=== PATIENT | female | born 1990 | race Caucasian/White ===

== ENCOUNTER 2019-07-31 08:36 | Emergency (ER) | payer OTHER ==
[~2019-07-31] VITALS: Ht 165.1 cm; Wt 76.2 kg
[~2019-07-31 08:36] MED LIST: ALBU0.0912 IH; PRED10TA5 PO; PRON INH
[2019-07-31 08:42] VITALS: BP 125/85
--- NOTE | 2019-07-31 08:46 | NUR ---
pt ambulated to er bed 08
--- NOTE | 2019-07-31 08:47 | NUR ---
ER MED AT BEDSIDE
--- NOTE | 2019-07-31 08:49 | NUR ---
29 Y/O F C/O LLQ ABDOMINAL PAIN X4 DAYS. THE PAIN IS 6/10, CONSTANT. PT DENIES DIFFICULTY URINATING. NO N/V/F OR DIAHREA. ABDOMEN IS ROUND, SOFT WITH PAIN TO TOUCH IN THE LLQ. PT POSITIONED FOR COMFORT, BED LOWERED, SIDE RAIL X1 IN PLACE. ALLERGIES: ACETAMINOPHEN, HYDROCODONE.
--- NOTE | 2019-07-31 08:50 | NUR ---
DR TREVIÑO AT BEDSIDE EXAMINING PATIENT.
--- NOTE | 2019-07-31 09:00 | NUR ---
PT AMBULATED TO RESTROOM WITHOUT DIFFICULTY.
--- NOTE | 2019-07-31 09:52 | NUR ---
LAB AT PT BEDSIDE DRAWING ORDERED LAB WORK.
[2019-07-31 10:13] LABS: APPEARANCE,URINE CLEAR (CLEAR); BILIRUBIN,URINE NEGATIVE (NEGATIVE); BLOOD, URINE NEGATIVE (NEGATIVE); COLOR,URINE YELLOW (YELLOW); LEUKOCYTE ESTERASE ,URINE NEGATIVE (NEGATIVE); NITRITE, URINE NEGATIVE (NEGATIVE); UGLUCOSE NEGATIVE (NEGATIVE)
--- NOTE | 2019-07-31 10:50 | NUR ---
PT RESTING COMFORTABLY, VSS, INFORMED PT WAITING FOR TEST RESULTS TO RETURN.
[2019-07-31 11:01] VITALS: BP 127/80
--- NOTE | 2019-07-31 11:01 | NUR ---
Patient discharged with v/s stable. Written and verbal after care instructions given and explained. Patient verbalized understanding. Ambulatory with steady gait. All questions addressed prior to discharge. Advised to follow up with PMD.
== END 2019-07-31 11:01 | disposition home or self-care (01) ==
LOC: MED 08:36
DX: R10.9 Unspecified abdominal pain (principal); J45.909 Unspecified asthma, uncomplicated; Z79.899 Other long term (current) drug therapy; Z88.5 Allergy status to narcotic agent
CPT/HCPCS: 81003; 81025; 84703; 99283

== ENCOUNTER 2020-06-29 23:00 | Emergency (ER) | payer OTHER ==
[~2020-06-29] VITALS: Ht 165.1 cm; Wt 77.1 kg
[2020-06-29 23:40] VITALS: BP 114/73
--- NOTE | 2020-06-29 23:43 | NUR ---
TO LOBBY A/W BED AMBULATORY
[2020-06-30] MEDS ORDERED: KETOROLAC 60 MG/2 ML VIAL IM ONE ×2 (00:45→01:52)
--- NOTE | 2020-06-30 01:53 | NUR ---
30 year old female c/o llq abdominal pain x 3 days. states reports + nausea today. reports 8/10 stabbing pain that is radiating to left flank. denies headache/blurry vision. denies sob/cough. denies vomiting or diarrhea. denies any other s/sx. denies any injury or trauma. pmhx: asthma, bipolar allx: vicodin.
[2020-06-30 02:02] VITALS: BP 118/60
--- NOTE | 2020-06-30 02:46 | NUR ---
Patient discharged with v/s stable. Written and verbal after care instructions given and explained. Patient alert, oriented and verbalized understanding of instructions. Ambulatory with steady gait. All questions addressed prior to discharge. ID band removed. Patient advised to follow up with PMD. Rx of dicyclomine, zofran, motrin given. Patient educated on indication of medication including possible reaction and side effects. Opportunity to ask questions provided and answered.
[2020-06-30 03:13] LABS: APPEARANCE,URINE HAZY (CLEAR); BILIRUBIN,URINE NEGATIVE (NEGATIVE); BLOOD, URINE NEGATIVE (NEGATIVE); COLOR,URINE YELLOW (YELLOW); LEUKOCYTE ESTERASE ,URINE NEGATIVE (NEGATIVE); NITRITE, URINE NEGATIVE (NEGATIVE); UGLUCOSE NEGATIVE (NEGATIVE)
[2020-06-30 03:29] LABS: RBC,URINE 0-5 /HPF (0-5); WBC,URINE 0-5 /HPF (0-5)
[2020-06-30] MEDS ORDERED: ATOR40TA PO (03:50)
[2020-06-30] MEDS ORDERED: OMEP40EC24 PO (03:50)
[2020-06-30] MEDS ORDERED: PALI819S IM (03:50)
[2020-06-30] MEDS ORDERED: DIT5 PO (03:50)
[2020-06-30] MEDS ORDERED: MONT10TA35 PO (03:50)
[2020-06-30] MEDS ORDERED: HYDR-5122 PO (03:50)
[2020-06-30] MEDS ORDERED: VENL-152 PO (03:50)
[2020-06-30] MEDS ORDERED: GUAN1TAB6 PO (03:50)
[2020-06-30] MEDS ORDERED: DOCU-299 PO (03:50)
[2020-06-30] MEDS ORDERED: CARV6.252 PO (03:50)
[2020-06-30] MEDS ORDERED: METF500S6 PO (03:50)
[2020-06-30] MEDS ORDERED: FURO-572 PO (03:50)
[2020-06-30] MEDS ORDERED: HYDR1TAB PO (03:50)
[2020-06-30] MEDS ORDERED: TRAZ-343 PO (03:50)
[2020-06-30] MEDS ORDERED: UBRO50TA PO (03:50)
== END 2020-06-30 02:46 | disposition home or self-care (01) ==
LOC: MED 23:00
DX: R10.9 Unspecified abdominal pain (principal); J45.909 Unspecified asthma, uncomplicated; F12.90 Cannabis use, unspecified, uncomplicated; Z79.899 Other long term (current) drug therapy; Z88.5 Allergy status to narcotic agent; Z88.6 Allergy status to analgesic agent
CPT/HCPCS: 74022; 81001; 81025; 87086; 96372; 99284; J1885